=== PATIENT | male | born 1995 | race Hispanic/Latino ===

== ENCOUNTER 2020-07-16 20:51 | Inpatient (IN) | payer SELFPAY ==
[2020-07-16] MEDS ORDERED: Lidocaine 1% PF 5 ML VIAL ONE (23:13)
[2020-07-16 23:24] LABS: #Basophils 0.1 thou/uL (0.0-0.2); #Eosinphils 0.3 thou/uL (0.0-0.7); #Lymphocytes 2.4 thou/uL (1.20-3.40); #Monocytes 1.3 thou/uL (0.11-0.59); %Basophils 0.5 % (0.0-1.0); %Eosinophils 2.4 % (0.0-10.0); %Lymphocytes 18.6 % (21.0-51.0); %Monocytes 10.2 % (0.0-10.0); %Neutrophils 68.4 % (42.0-75.0); Hemoglobin 12.4 g/dL (14.0-18.0); Mean Corpuscular HGB CONC 34.5 g/dL (32.0-36.0); Mean Corpuscular Hemoglobin 31.5 pg (27.0-31.0); Mean Corpuscular Volume 91.5 fL (78.0-98.0); Platelet Count 311 thou/uL (130-400); RBC Distribution Width 11.4 % (11.5-14.5); Red Blood Cell (RBC) Count 3.92 mill/uL (4.70-6.10); White Blood Cell (WBC) Count 13.1 thou/uL (4.8-10.8)
[2020-07-16] MEDS ORDERED: Morphine 4 MG/ML VIAL ONE (23:42)
[2020-07-16] MEDS ORDERED: metroNIDAZOLE 500 MG/100 ML BAG ONE (23:42)
[2020-07-16 23:45] LABS: ALT (SGPT) 35 U/L (8-55); AST (SGOT) 14 U/L (5-34); Albumin 3.9 g/dL (3.5-5.0); Alkaline Phosphatase 73 U/L (40-110); Anion Gap 13 mmol/L (10-20); BUN (Urea Nitrogen) 11 mg/dL (8.9-20.6); Bilirubin, Total 0.5 mg/dL (0.2-1.2); Calc. Creatinine Clearance 0 mL/min (70-130); Calcium 8.5 mg/dL (7.8-10.44); Carbon Dioxide 25 mmol/L (22-29); Chloride 104 mmol/L (98-107); Glucose 122 mg/dL (70-105); Potassium 3.2 mmol/L (3.5-5.1); Protein, Total 6.9 g/dL (6.0-8.3); Sodium 139 mmol/L (136-145)
[2020-07-17] MEDS ORDERED: Vancomycin 1 GM/200 ML BAG ONE (00:55)
[2020-07-17] MEDS ORDERED: Acetaminophen 325 MG TAB PO PRN (01:12)
[2020-07-17] MEDS ORDERED: HYDROcodone/Acetaminophen 5/325 mg Tablet PO PRN ×2 (01:12)
[2020-07-17] MEDS ORDERED: Senokot S 8.6-50 MG TAB PO PRN (01:12)
[2020-07-17] MEDS ORDERED: Morphine 2 MG/ML VIAL SLOW IVP PRN (01:13)
[2020-07-17 02:52] VITALS: BMI 33.9
[2020-07-17 06:00] LABS: #Basophils 0.1 thou/uL (0.0-0.2); #Eosinphils 0.4 thou/uL (0.0-0.7); #Lymphocytes 2.9 thou/uL (1.20-3.40); #Monocytes 1.4 thou/uL (0.11-0.59); #Neutrophils 8.6 thou/uL (1.40-6.50); %Basophils 0.5 % (0.0-1.0); %Eosinophils 2.7 % (0.0-10.0); %Lymphocytes 21.8 % (21.0-51.0); %Monocytes 10.3 % (0.0-10.0); %Neutrophils 64.8 % (42.0-75.0); Hemoglobin 12.4 g/dL (14.0-18.0); Mean Corpuscular HGB CONC 34.2 g/dL (32.0-36.0); Mean Corpuscular Hemoglobin 31.4 pg (27.0-31.0); Mean Corpuscular Volume 91.7 fL (78.0-98.0); Mean Platelet Volume 7.2 fL (7.4-10.4); Platelet Count 303 thou/uL (130-400); RBC Distribution Width 11.5 % (11.5-14.5); Red Blood Cell (RBC) Count 3.95 mill/uL (4.70-6.10); White Blood Cell (WBC) Count 13.2 thou/uL (4.8-10.8)
[2020-07-17] MEDS: metroNIDAZOLE 500 MG in Premix Bag 1 BAG IVPB SCH ×5 (06:07→23:32)
[2020-07-17 06:19] LABS: Anion Gap 14 mmol/L (10-20); BUN (Urea Nitrogen) 9 mg/dL (8.9-20.6); Calc. Creatinine Clearance 213 mL/min (70-130); Calcium 8.4 mg/dL (7.8-10.44); Carbon Dioxide 21 mmol/L (22-29); Chloride 106 mmol/L (98-107); Glucose 97 mg/dL (70-105); Potassium 3.4 mmol/L (3.5-5.1); Sodium 138 mmol/L (136-145)
[2020-07-17] MEDS: Vancomycin 1.5 GRAM/300 ML BAG 1.5 GM in Premix Bag 1 BAG IVPB SCH ×3 (07:10→23:32)
[2020-07-17 08:46] LABS: SARS-CoV-2 PCR by NAA Not Detected (NotDetected)
[2020-07-17] MEDS ORDERED: Adacel (T-DAP) 0.5 ML SYRINGE IM ONE (09:00)
[2020-07-17] MEDS: Enoxaparin Sodium 40 MG/0.4 ML SYRINGE SC SCH (09:12)
[2020-07-17] MEDS ORDERED: Potassium Chloride 20 MEQ TAB PO SCH (13:30)
[2020-07-17] MEDS: ceFAZolin 1 GM/D5W 1 GM in Premix Bag 1 BAG IVPB SCH ×2 (14:35→22:27)
[2020-07-17] MEDS ORDERED: Vancomycin 1 GM in Premix Bag 1 BAG IVPB SCH (23:00)
[2020-07-18] MEDS: metroNIDAZOLE 500 MG in Premix Bag 1 BAG IVPB SCH (06:22)
[2020-07-18] MEDS: ceFAZolin 1 GM/D5W 1 GM in Premix Bag 1 BAG IVPB SCH (06:22)
[2020-07-18 07:18] LABS: Vancomycin, Trough 15.4 ug/mL
[2020-07-18 07:19] LABS: Anion Gap 13 mmol/L (10-20); BUN (Urea Nitrogen) 7 mg/dL (8.9-20.6); Calc. Creatinine Clearance 186 mL/min (70-130); Calcium 8.5 mg/dL (7.8-10.44); Carbon Dioxide 24 mmol/L (22-29); Chloride 108 mmol/L (98-107); Glucose 101 mg/dL (70-105); Sodium 141 mmol/L (136-145)
[2020-07-18 07:55] VITALS: BP 108/65; TEMP 98
[2020-07-18 09:18] LABS: Hemoglobin 12.4 g/dL (14.0-18.0); Mean Corpuscular HGB CONC 33.6 g/dL (32.0-36.0); Mean Corpuscular Hemoglobin 31.6 pg (27.0-31.0); Mean Corpuscular Volume 94.3 fL (78.0-98.0); Mean Platelet Volume 7.2 fL (7.4-10.4); Platelet Count 338 thou/uL (130-400); RBC Distribution Width 11.6 % (11.5-14.5); Red Blood Cell (RBC) Count 3.92 mill/uL (4.70-6.10); White Blood Cell (WBC) Count 7.9 thou/uL (4.8-10.8)
[2020-07-18] MEDS: Enoxaparin Sodium 40 MG/0.4 ML SYRINGE SC SCH (09:58)
[2020-07-18] MEDS: Vancomycin 1.5 GRAM/300 ML BAG 1.5 GM in Premix Bag 1 BAG IVPB SCH (09:58)
== END 2020-07-18 11:57 | disposition home or self-care (01) | DRG 603 ==
LOC: ERS 20:51 → T4-A 07-17 00:16
PROVIDERS: ADMIT Student in an Organized Health Care Education/Training Program; ATTEND Internal Medicine
PROC: 0J993ZZ Drainage of Buttock Subcutaneous Tissue and Fascia, Percutaneous Approach (ICD-10-PCS; principal; 2020-07-17)
DX: L03.317 Cellulitis of buttock (principal); L05.01 Pilonidal cyst with abscess; E87.6 Hypokalemia; Z20.822 Contact with and (suspected) exposure to COVID-19; D64.9 Anemia, unspecified; Z28.21 Immunization not carried out because of patient refusal
CPT/HCPCS: 10080; 36415; 80048; 80053; 80202; 83605; 85025; 85027; 87070; 87077; 87205; 87635; 94760; 96365; 96367; 96375; J0690; J1650; J2270; J3370; U0003; U0005